=== PATIENT | female | born 1950 | race Caucasian/White ===

== ENCOUNTER 2020-04-23 13:01 | Outpatient (CLI) | payer MEDICARE, OTHER ==
--- NOTE | 2020-04-23 14:05 | ULT ---
EXAM: US Thyroid STANDARD PROVIDED CLINICAL HISTORY: Thyroid nodules COMPARISON: None FINDINGS: Right thyroid lobe measures 4.3 cm x 1.4 cm x 1.2 cm. A circumscribed small hypoechoic nodule midportion right lobe of thyroid gland is visualized measurin g 0.4 cm. No additional right thyroid nodule is seen. Left thyroid lobe measures 4.5 cm x 1.3 cm x 1 cm. There is a circumscribed hypoechoic nodule seen in the anterior aspect midportion left lobe of thyroi d gland which measures 0.7 cm in maximal dimension. No additional nodule is seen in the left lobe of thyroid gland. The thyroid isthmus measures 0.4 cm in AP dimensions. IMPRESSION: Single TI RADS level 4 nodule each lobe of the thyroid gland, moderately suspicious nodules. Based on ACR guidelines and size characteristics, follow-up evaluation or fine-needle aspiration is not warranted.
== END 2020-04-23 13:02 | disposition home or self-care (01) ==
LOC: BICULT 13:01
PROVIDERS: ATTEND Internal Medicine Endocrinology, Diabetes & Metabolism
DX: E04.2 Nontoxic multinodular goiter (principal)
CPT/HCPCS: 76536

== ENCOUNTER 2021-05-06 14:58 | Outpatient (CLI) | payer MEDICARE, OTHER | END 2021-05-06 14:59 | disposition home or self-care (01) | LOC: BICRAD 14:58 | PROVIDERS: ATTEND Podiatrist | DX: M79.671 Pain in right foot (principal); M79.89 Other specified soft tissue disorders ==

== ENCOUNTER 2022-09-13 13:10 | Outpatient (CLI) | payer MEDICARE, OTHER | END 2022-09-13 13:11 | disposition home or self-care (01) | LOC: BICMAMMO 13:10 | PROVIDERS: ATTEND Internal Medicine | DX: N63.20 Unspecified lump in the left breast, unspecified quadrant (principal) | CPT/HCPCS: 77066; G0279 ==

== ENCOUNTER 2023-05-02 17:00 | Outpatient (CLI) | payer MEDICARE, OTHER | END 2023-05-02 17:01 | disposition home or self-care (01) | LOC: SLEEPLAB 17:00 | PROVIDERS: ATTEND Internal Medicine | DX: G47.33 Obstructive sleep apnea (adult) (pediatric) (principal); R06.83 Snoring; I10 Essential (primary) hypertension; E11.9 Type 2 diabetes mellitus without complications; I25.10 Atherosclerotic heart disease of native coronary artery without angina pectoris; G47.00 Insomnia, unspecified | CPT/HCPCS: 95800 ==

== ENCOUNTER 2023-09-16 10:51 | Outpatient (CLI) | payer MEDICARE, OTHER | END 2023-09-16 10:52 | disposition home or self-care (01) | LOC: BICMAMMO 10:51 | PROVIDERS: ATTEND Internal Medicine | DX: Z12.31 Encounter for screening mammogram for malignant neoplasm of breast (principal); Z91.89 Other specified personal risk factors, not elsewhere classified | CPT/HCPCS: 77063; 77067 ==

== ENCOUNTER 2023-11-16 14:17 | Outpatient (CLI) | payer MEDICARE, OTHER ==
[~2023-11-16 14:17] MED LIST: Iopamidol 370 76% 100 ML VIAL ONE
== END 2023-11-16 14:18 | disposition home or self-care (01) ==
LOC: BICCT 14:17
PROVIDERS: ATTEND Internal Medicine Cardiovascular Disease
DX: R55 Syncope and collapse (principal); I65.23 Occlusion and stenosis of bilateral carotid arteries
CPT/HCPCS: 70498; Q9967

== ENCOUNTER 2023-12-28 10:46 | Outpatient (CLI) | payer MEDICARE, OTHER | END 2023-12-28 10:47 | disposition home or self-care (01) | LOC: BICRAD 10:46 | PROVIDERS: ATTEND Internal Medicine | DX: R55 Syncope and collapse (principal); K92.1 Melena; K21.9 Gastro-esophageal reflux disease without esophagitis; R10.32 Left lower quadrant pain | CPT/HCPCS: 71046 ==